=== PATIENT | male | born 1960 | race Hispanic/Latino ===

== ENCOUNTER 2018-04-28 09:53 | Emergency (ER) | payer BC ==
[~2018-04-28] VITALS: Ht 167.6 cm; Wt 108.9 kg
[2018-04-28 12:30] LABS: BASOPHILS % 0.2 % (0.0-1.0); EOSINOPHILS # (AUTO) 0.1 (0.0-0.4); EOSINOPHILS % 1.4 % (0.0-6.0); HEMATOCRIT 48.1 % (38.2-49.6); HEMOGLOBIN 16.9 g/dL (14.0-18.0); LYMPHOCYTES # (AUTO) 1.2 (1.0-3.2); LYMPHOCYTES % 14.5 % (18.0-39.1); MEAN CORPUSCULAR HEMOGLOBIN 33.1 pg (28-32); MEAN CORPUSCULAR HGB CONC 35.1 g/dL (31-35); MEAN CORPUSCULAR VOLUME 94.1 fL (81-99); MONOCYTES # (AUTO) 0.6 (0.2-0.8); MONOCYTES % 7.6 % (4.4-11.3); NEUTROPHILS # (AUTO) 6.1 (2.1-6.9); NEUTROPHILS % 75.9 % (38.7-80.0); PLATELET COUNT 298 x10e3/uL (140-360); RED BLOOD COUNT 5.11 x10e6/uL (4.3-5.7); RED CELL DISTRIBUTION WIDTH 12.7 % (11.7-14.4)
[2018-04-28 12:38] LABS: INR 1.17
[2018-04-28 12:39] LABS: PARTIAL THROMBOPLASTIN TIME 29.8 seconds (23.8-35.5)
[2018-04-28 12:50] LABS: ALBUMIN 3.8 g/dL (3.5-5.0); ALBUMIN/GLOBULIN RATIO 0.8 (0.8-2.0); ANION GAP 18.3 mmol/L (8-16); CALCIUM 10.1 mg/dL (8.4-10.2); CREATININE, SERUM 1.52 mg/dL (0.72-1.25); POTASSIUM 4.3 mmol/L (3.5-5.1)
[2018-04-28] MEDS ORDERED: PIPER-TAZ 3.375 GM 50 ML IV SCH (14:00)
[2018-04-28] MEDS ORDERED: VANCOMYCIN 1GM/NS 250 ML 250 ML IV SCH (14:00)
== END 2018-04-28 17:19 | disposition home or self-care (01) ==
LOC: ER 09:53
DX: M79.622 Pain in left upper arm (principal); L03.114 Cellulitis of left upper limb
CPT/HCPCS: 36415; 80053; 83605; 85025; 85610; 85730; 87040; 93971; 99284; J2543; J3370

== ENCOUNTER 2018-05-08 08:28 | Emergency (ER) | payer BC ==
[~2018-05-08] VITALS: Ht 167.6 cm; Wt 108.9 kg
[2018-05-08] MEDS ORDERED: HYDROMORPHONE 1MG/1ML INJ IV STA (10:11)
[2018-05-08] MEDS ORDERED: ONDANSETRON HCL INJ 2 MG/ML VIAL IV STA (10:11)
[2018-05-08 10:20] LABS: BASOPHILS # (AUTO) 0.1 (0.0-0.1); BASOPHILS % 1.1 % (0.0-1.0); EOSINOPHILS # (AUTO) 0.3 (0.0-0.4); EOSINOPHILS % 4.2 % (0.0-6.0); HEMATOCRIT 42.3 % (38.2-49.6); HEMOGLOBIN 14.5 g/dL (14.0-18.0); LYMPHOCYTES # (AUTO) 1.4 (1.0-3.2); LYMPHOCYTES % 23.5 % (18.0-39.1); MEAN CORPUSCULAR HEMOGLOBIN 32.5 pg (28-32); MEAN CORPUSCULAR HGB CONC 34.3 g/dL (31-35); MEAN CORPUSCULAR VOLUME 94.8 fL (81-99); MONOCYTES # (AUTO) 0.5 (0.2-0.8); MONOCYTES % 8.3 % (4.4-11.3); NEUTROPHILS # (AUTO) 3.8 (2.1-6.9); NEUTROPHILS % 62.4 % (38.7-80.0); PLATELET COUNT 379 x10e3/uL (140-360); RED BLOOD COUNT 4.46 x10e6/uL (4.3-5.7); RED CELL DISTRIBUTION WIDTH 12.1 % (11.7-14.4)
== END 2018-05-08 15:24 | disposition home or self-care (01) ==
LOC: ER 08:28
DX: M79.622 Pain in left upper arm (principal); L03.114 Cellulitis of left upper limb; M10.032 Idiopathic gout, left wrist
CPT/HCPCS: 36415; 84550; 85025; 99282

== ENCOUNTER 2018-05-25 07:07 | Emergency (ER) | payer BC ==
[~2018-05-25] VITALS: Ht 167.6 cm; Wt 108.9 kg
[2018-05-25] MEDS ORDERED: COLCHICINE 0.6 MG TAB PO SCH (07:30)
[2018-05-25] MEDS ORDERED: PREDNISONE 20 MG TAB PO ONE (07:30)
[2018-05-25] MEDS ORDERED: PREDNISONE10 M1 PO (07:56)
[2018-05-25] MEDS ORDERED: PREDNISONE20 MG PO (07:56)
[2018-05-25] MEDS ORDERED: PREDNISONE10 MG PO (07:56)
[2018-05-25] MEDS ORDERED: COLCRYS0.6 MG PO (07:57)
[2018-05-25 08:32] VITALS: BP 107/72
--- NOTE | 2018-05-25 11:23 | Diagnostic Imaging Report ---
PROCEDURE:X-RAY RIGHT KNEE, THREE OR MORE VIEWS COMPARISON:None. INDICATIONS:RIGHT LEG PAIN/SWELLING FINDINGS: The bones are well-mineralized. No evidence of fracture or malalignment. There are moderate tricompartmental, medial compartment predominant degenerative changes with joint space narrowing and bony osteophyte formation. There is a trace suprapatellar joint effusion. There is quadriceps enthesopathy. CONCLUSION: No evidence of fracture or malalignment. Trace suprapatellar joint effusion. 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 Dictated by: SHANNAN WEATHERS M.D. on 05/25/2018 at 8:28 Electronically approved by: SHANNAN WEATHERS M.D. on 05/25/2018 at 8:28
--- NOTE | 2018-05-25 11:23 | Diagnostic Imaging Report ---
PROCEDURE:X-RAY RIGHT ANKLE, COMPLETE INDICATION:Right leg pain/swelling COMPARISON:None. FINDINGS: No evidence of fracture or malalignment. The ankle mortise is preserved. Mild degenerative changes are present at the tibiotalar and intertarsal joints. Mild soft tissue swelling surrounding the ankle. Achilles enthesopathy is present. CONCLUSION: No acute osseous abnormality. Soft tissue swelling surrounding the ankle. Mild osteoarthritis of the tibiotalar and intertarsal joints. Dictated by: SHANNAN WEATHERS M.D. on 05/25/2018 at 8:30 Electronically approved by: SHANNAN WEATHERS M.D. on 05/25/2018 at 8:30
== END 2018-05-25 09:10 | disposition home or self-care (01) ==
LOC: ER 07:07
DX: M25.522 Pain in left elbow (principal); M25.561 Pain in right knee; M25.571 Pain in right ankle and joints of right foot; M1A.09X0 Idiopathic chronic gout, multiple sites, without tophus (tophi)
CPT/HCPCS: 99283

== ENCOUNTER 2021-11-24 17:42 | Inpatient (IN) | payer BC ==
[~2021-11-24] VITALS: Ht 167.6 cm; Wt 106.6 kg
[~2021-11-24 17:42] MED LIST: COLCRYS0.6 MG PO; PREDNISONE10 M1 PO; PREDNISONE10 MG PO; PREDNISONE20 MG PO
[2021-11-24] MEDS ORDERED: SODIUM CHLORIDE 0.9% 1000ML 1,000 ML IV ONE (18:00)
[2021-11-24 18:12] LABS: BASOPHILS % 0.3 % (0.0-1.0); HEMATOCRIT 49.8 % (38.2-49.6); HEMOGLOBIN 16.5 g/dL (14.0-18.0); LYMPHOCYTES # (AUTO) 1.6 (1.0-3.2); LYMPHOCYTES % 15.4 % (18.0-39.1); MEAN CORPUSCULAR HGB CONC 33.1 g/dL (31-35); MEAN CORPUSCULAR VOLUME 93.4 fL (81-99); MONOCYTES # (AUTO) 0.8 (0.2-0.8); MONOCYTES % 7.8 % (4.4-11.3); NEUTROPHILS # (AUTO) 8.1 (2.1-6.9); NEUTROPHILS % 75.9 % (38.7-80.0); PLATELET COUNT 292 x10e3/uL (140-360); RED BLOOD COUNT 5.33 x10e6/uL (4.3-5.7); RED CELL DISTRIBUTION WIDTH 13.2 % (11.7-14.4)
[2021-11-24 18:17] LABS: CLARITY,URINE CLEAR (CLEAR); COLOR,URINE STRAW (YELLOW); KETONES,URINE TRACE (NEGATIVE); LEUKOCYTE ESTERASE ,URINE NEGATIVE (NEGATIVE); NITRITE,URINE NEGATIVE (NEGATIVE); PROTEIN,URINE DIPSTICK TRACE (NEGATIVE); URINE UROBILINOGEN 1 mg/dL (0.2 - 1)
[2021-11-24] MEDS ORDERED: KETOROLAC TROMETHAMINE 30 MG/ML VIAL IV ONE (18:21)
[2021-11-24 18:29] LABS: ALBUMIN 3.6 g/dL (3.5-5.0); ALBUMIN/GLOBULIN RATIO 0.7 (0.8-2.0); ANION GAP 20.1 mmol/L (8-16); CALCIUM 9.7 mg/dL (8.4-10.2); CREATININE, SERUM 1.47 mg/dL (0.72-1.25); POTASSIUM 4.1 mmol/L (3.5-5.1)
[2021-11-24] MEDS ORDERED: ACETAMINOPHEN 325 MG TAB PO ONE (18:30)
[2021-11-24 18:34] LABS: BACTERIA,URINE MODERATE /HPF; HYALINE CASTS 0-1 (0-1); MUCUS,URINE FEW (RARE)
[2021-11-24] MEDS ORDERED: LACTATED RINGER'S 1,000 ML INJ ONE ×2 (19:15→20:45)
[2021-11-24] MEDS ORDERED: CEFTRIAXONE 1 GM VIAL IV ONE (19:15)
[2021-11-24] MEDS ORDERED: SODIUM CHLORIDE 0.9% 1000ML 1,000 ML ONE (19:22)
[2021-11-24] MEDS ORDERED: CEFTRIAXONE 1 GM in SODIUM CHLORIDE 0.9% 50ML 50 ML IV ONE (19:30)
[2021-11-24] MEDS ORDERED: ONDANSETRON HCL INJ 2MG/ML 2ML 2 MG/ML VIAL IV PRN (20:30)
[2021-11-24] MEDS ORDERED: LACTATED RINGER'S 1,000 ML ONE (20:41)
[2021-11-24] MEDS: SODIUM CHLORIDE 0.9% 1000ML 1,000 ML IV SCH (21:20)
[2021-11-24] MEDS ORDERED: ACETAMINOPHEN 325 MG TAB PO PRN (21:30)
[2021-11-24 23:45] VITALS: BP 129/72
[2021-11-25] VITALS (9 sets, daily range): BP systolic 107–156; BP diastolic 72–88
[2021-11-25] MEDS: Morphine 4mg Syringe 4 MG/ML INJ IV PRN ×2 (03:59→20:50)
[2021-11-25 05:04] LABS: BASOPHILS % 0.3 % (0.0-1.0); EOSINOPHILS % 0.6 % (0.0-6.0); HEMATOCRIT 37.6 % (38.2-49.6); LYMPHOCYTES # (AUTO) 1.5 (1.0-3.2); LYMPHOCYTES % 23.4 % (18.0-39.1); MEAN CORPUSCULAR HGB CONC 32.2 g/dL (31-35); MEAN CORPUSCULAR VOLUME 96.4 fL (81-99); MONOCYTES # (AUTO) 0.7 (0.2-0.8); MONOCYTES % 11.2 % (4.4-11.3); NEUTROPHILS # (AUTO) 4.1 (2.1-6.9); RED CELL DISTRIBUTION WIDTH 13.5 % (11.7-14.4)
[2021-11-25] MEDS: SODIUM CHLORIDE 0.9% 1000ML 1,000 ML IV SCH ×3 (05:10→20:27)
[2021-11-25 05:27] LABS: CALCIUM 8.1 mg/dL (8.4-10.2); CREATININE, SERUM 1.05 mg/dL (0.72-1.25)
[2021-11-25 05:47] LABS: HEMOGLOBIN 12.1 g/dL (14.0-18.0); PLATELET COUNT 164 x10e3/uL (140-360)
[2021-11-25] MEDS ORDERED: ONDANSETRON HCL 4 MG ORAL DISINTEGRATING TAB PO PRN (10:45)
[2021-11-25] MEDS: CEFTRIAXONE 1 GM in SODIUM CHLORIDE 0.9% 50ML 50 ML IV SCH (12:05)
[2021-11-25] MEDS: ENOXAPARIN SOD INJ 40 MG/0.4 ML SYR SC SCH (18:02)
[2021-11-25] MEDS: TAMSULOSIN HCL 0.4 MG CAP PO SCH (18:02)
[2021-11-26] VITALS (9 sets, daily range): BP systolic 95–137; BP diastolic 48–96
[2021-11-26] MEDS: SODIUM CHLORIDE 0.9% 1000ML 1,000 ML IV SCH ×2 (04:06→10:45)
[2021-11-26 06:08] LABS: BASOPHILS % 0.3 % (0.0-1.0); EOSINOPHILS # (AUTO) 0.1 (0.0-0.4); EOSINOPHILS % 1.4 % (0.0-6.0); HEMOGLOBIN 11.6 g/dL (14.0-18.0); LYMPHOCYTES # (AUTO) 1.4 (1.0-3.2); LYMPHOCYTES % 24.8 % (18.0-39.1); MEAN CORPUSCULAR HEMOGLOBIN 30.8 pg (28-32); MEAN CORPUSCULAR HGB CONC 32.2 g/dL (31-35); MEAN CORPUSCULAR VOLUME 95.5 fL (81-99); MONOCYTES # (AUTO) 0.6 (0.2-0.8); MONOCYTES % 9.8 % (4.4-11.3); NEUTROPHILS # (AUTO) 3.6 (2.1-6.9); NEUTROPHILS % 63.4 % (38.7-80.0); PLATELET COUNT 173 x10e3/uL (140-360); RED BLOOD COUNT 3.77 x10e6/uL (4.3-5.7); RED CELL DISTRIBUTION WIDTH 13.2 % (11.7-14.4)
[2021-11-26 06:26] LABS: ANION GAP 13.5 mmol/L (8-16); CALCIUM 8.1 mg/dL (8.4-10.2); CREATININE, SERUM 0.9 mg/dL (0.72-1.25); POTASSIUM 3.5 mmol/L (3.5-5.1)
[2021-11-26] MEDS: CEFTRIAXONE 1 GM in SODIUM CHLORIDE 0.9% 50ML 50 ML IV SCH (09:38)
[2021-11-26] MEDS: Morphine 4mg Syringe 4 MG/ML INJ IV PRN (09:45)
[2021-11-26] MEDS: TAMSULOSIN HCL 0.4 MG CAP PO SCH (16:37)
[2021-11-26] MEDS: ENOXAPARIN SOD INJ 40 MG/0.4 ML SYR SC SCH (16:37)
[2021-11-26] MEDS ORDERED: SODIUM CHLORIDE 0.9% 50ML 50 ML ONE (17:53)
[2021-11-26] MEDS ORDERED: IOPAMIDOL 370 MG/ML 200 ML INFUS..BTL INJ ONE (17:53)
[2021-11-26] MEDS: ACETAMINOPHEN 325 MG TAB PO PRN (20:48)
[2021-11-27] VITALS (8 sets, daily range): BP systolic 107–136; BP diastolic 72–88
[2021-11-27] MEDS: CEFTRIAXONE 1 GM in SODIUM CHLORIDE 0.9% 50ML 50 ML IV SCH (09:00)
[2021-11-27] MEDS: ALLOPURINOL 100 MG TAB PO SCH (09:00)
[2021-11-27] MEDS: TAMSULOSIN HCL 0.4 MG CAP PO SCH (16:33)
[2021-11-27] MEDS: ENOXAPARIN SOD INJ 40 MG/0.4 ML SYR SC SCH (16:33)
[2021-11-28] VITALS (8 sets, daily range): BP systolic 119–144; BP diastolic 74–105
[2021-11-28] MEDS: ACETAMINOPHEN 325 MG TAB PO PRN (02:51)
[2021-11-28 05:51] LABS: BASOPHILS % 0.3 % (0.0-1.0); EOSINOPHILS # (AUTO) 0.4 (0.0-0.4); EOSINOPHILS % 6.5 % (0.0-6.0); HEMATOCRIT 36.4 % (38.2-49.6); HEMOGLOBIN 12.1 g/dL (14.0-18.0); LYMPHOCYTES # (AUTO) 1.2 (1.0-3.2); LYMPHOCYTES % 20.6 % (18.0-39.1); MEAN CORPUSCULAR HEMOGLOBIN 30.3 pg (28-32); MEAN CORPUSCULAR HGB CONC 33.2 g/dL (31-35); MEAN CORPUSCULAR VOLUME 91.2 fL (81-99); MONOCYTES # (AUTO) 0.4 (0.2-0.8); MONOCYTES % 7.4 % (4.4-11.3); NEUTROPHILS # (AUTO) 3.8 (2.1-6.9); NEUTROPHILS % 64.9 % (38.7-80.0); PLATELET COUNT 221 x10e3/uL (140-360); RED BLOOD COUNT 3.99 x10e6/uL (4.3-5.7); RED CELL DISTRIBUTION WIDTH 12.8 % (11.7-14.4)
[2021-11-28 06:20] LABS: ANION GAP 14.7 mmol/L (8-16); CALCIUM 8.3 mg/dL (8.4-10.2); CREATININE, SERUM 0.85 mg/dL (0.72-1.25); POTASSIUM 3.7 mmol/L (3.5-5.1)
[2021-11-28] MEDS: CEFTRIAXONE 1 GM in SODIUM CHLORIDE 0.9% 50ML 50 ML IV SCH (07:55)
[2021-11-28] MEDS: ALLOPURINOL 100 MG TAB PO SCH (07:55)
[2021-11-28] MEDS: TRAMADOL HCL 50 MG TAB PO PRN ×2 (08:11→16:58)
[2021-11-28] MEDS ORDERED: Vancomycin IV 1 GM in SODIUM CHLORIDE 0.9% 250ML 250 ML IV SCH (10:30)
[2021-11-28] MEDS ORDERED: LIDOCAINE HCL 1% LOCAL INJ 20 ML VIAL ONE (14:13)
[2021-11-28 14:56] LABS: INR 1.08; PROTHROMBIN TIME 14.8 seconds (11.9-14.5)
[2021-11-28] MEDS: ENOXAPARIN SOD INJ 40 MG/0.4 ML SYR SC SCH (16:57)
[2021-11-28] MEDS: TAMSULOSIN HCL 0.4 MG CAP PO SCH (16:57)
[2021-11-28] MEDS: METHYLPREDNISOLONE SOD SUCC 40 MG/ML VIAL 1ML IV SCH (16:57)
[2021-11-28 20:17] LABS: BODY FLUID APPEARANCE SL.CLOUDY; BODY FLUID COLOR YELLOW; BODY FLUID TYPE SYNOVIAL
[2021-11-28 20:18] LABS: RBC,BODY FLUID 1000 cells/uL; WBC,BODY FLUID 5441 cells/uL
[2021-11-28 20:25] LABS: BODY FLUID APPEARANCE SL.CLOUDY; BODY FLUID COLOR YELLOW; BODY FLUID TYPE SYNOVIAL; RBC,BODY FLUID 1000 cells/uL; WBC,BODY FLUID 1087 cells/uL
[2021-11-28 20:45] LABS: LYMPHOCYTES,BODY FLUID 10 %; NEUTROPHILS,BODY FLUID 81 %
[2021-11-28 20:46] LABS: LYMPHOCYTES,BODY FLUID 12 %; MONO/MACROPHG,BODY FLUID 5 %; MONO/MACROPHG,BODY FLUID 9 %; NEUTROPHILS,BODY FLUID 83 %
[2021-11-29] VITALS (8 sets, daily range): BP systolic 119–139; BP diastolic 73–89
[2021-11-29] MEDS: METHYLPREDNISOLONE SOD SUCC 40 MG/ML VIAL 1ML IV SCH ×2 (05:42→17:29)
[2021-11-29] MEDS: ALLOPURINOL 100 MG TAB PO SCH (08:20)
[2021-11-29] MEDS: CEFTRIAXONE 1 GM in SODIUM CHLORIDE 0.9% 50ML 50 ML IV SCH (08:20)
[2021-11-29] MEDS: ENOXAPARIN SOD INJ 40 MG/0.4 ML SYR SC SCH (16:20)
[2021-11-29] MEDS: TAMSULOSIN HCL 0.4 MG CAP PO SCH (16:20)
[2021-11-29] MEDS: ACETAMINOPHEN 325 MG TAB PO PRN (21:26)
[2021-11-30] VITALS (9 sets, daily range): BP systolic 111–131; BP diastolic 78–87
[2021-11-30] MEDS: METHYLPREDNISOLONE SOD SUCC 40 MG/ML VIAL 1ML IV SCH ×2 (05:55→17:23)
[2021-11-30] MEDS: ALLOPURINOL 100 MG TAB PO SCH (08:38)
[2021-11-30] MEDS: CEFTRIAXONE 1 GM in SODIUM CHLORIDE 0.9% 50ML 50 ML IV SCH (08:38)
[2021-11-30] MEDS: ENOXAPARIN SOD INJ 40 MG/0.4 ML SYR SC SCH (17:23)
[2021-11-30] MEDS: TAMSULOSIN HCL 0.4 MG CAP PO SCH (17:23)
[2021-11-30] MEDS: ACETAMINOPHEN 325 MG TAB PO PRN (21:36)
[2021-12-01] VITALS (8 sets, daily range): BP systolic 108–135; BP diastolic 82–99
[2021-12-01] MEDS: METHYLPREDNISOLONE SOD SUCC 40 MG/ML VIAL 1ML IV SCH ×2 (05:06→17:09)
[2021-12-01] MEDS: CEFTRIAXONE 1 GM in SODIUM CHLORIDE 0.9% 50ML 50 ML IV SCH (08:19)
[2021-12-01] MEDS: ALLOPURINOL 100 MG TAB PO SCH (08:19)
[2021-12-01 10:37] LABS: BASOPHILS % 0.2 % (0.0-1.0); EOSINOPHILS % 0.2 % (0.0-6.0); HEMATOCRIT 42.8 % (38.2-49.6); HEMOGLOBIN 13.7 g/dL (14.0-18.0); LYMPHOCYTES # (AUTO) 1.1 (1.0-3.2); LYMPHOCYTES % 19.5 % (18.0-39.1); MEAN CORPUSCULAR HEMOGLOBIN 30.4 pg (28-32); MEAN CORPUSCULAR VOLUME 94.9 fL (81-99); MONOCYTES # (AUTO) 0.3 (0.2-0.8); MONOCYTES % 4.5 % (4.4-11.3); NEUTROPHILS # (AUTO) 4.2 (2.1-6.9); NEUTROPHILS % 74.3 % (38.7-80.0); PLATELET COUNT 302 x10e3/uL (140-360); RED BLOOD COUNT 4.51 x10e6/uL (4.3-5.7)
[2021-12-01 10:55] LABS: ANION GAP 15.6 mmol/L (8-16); CALCIUM 9.1 mg/dL (8.4-10.2); CREATININE, SERUM 0.9 mg/dL (0.72-1.25); POTASSIUM 4.6 mmol/L (3.5-5.1)
[2021-12-01] MEDS: ENOXAPARIN SOD INJ 40 MG/0.4 ML SYR SC SCH (16:20)
[2021-12-01] MEDS: TAMSULOSIN HCL 0.4 MG CAP PO SCH (16:20)
[2021-12-01] MEDS: ACETAMINOPHEN 325 MG TAB PO PRN (21:02)
[2021-12-02 00:49] VITALS: BP 131/85
[2021-12-02] MEDS: METHYLPREDNISOLONE SOD SUCC 40 MG/ML VIAL 1ML IV SCH (05:07)
[2021-12-02 05:50] VITALS: BP 126/83
[2021-12-02 07:30] VITALS: BP 130/79
[2021-12-02 07:44] VITALS: BP 130/79
[2021-12-02] MEDS: CEFTRIAXONE 1 GM in SODIUM CHLORIDE 0.9% 50ML 50 ML IV SCH (08:11)
[2021-12-02] MEDS: ALLOPURINOL 100 MG TAB PO SCH (08:11)
[2021-12-02] MEDS ORDERED: CELEBREX100 MG PO (09:52)
[2021-12-02] MEDS ORDERED: FLOMAX0.4 MG PO (09:53)
[2021-12-02] MEDS ORDERED: ALLOPURINOL100 MG PO (09:53)
[2021-12-02 11:35] VITALS: BP 128/94
== END 2021-12-02 15:15 | disposition home or self-care (01) | DRG 872 ==
LOC: ER 17:50 → ERHOLD 20:29 → MED/SURG3 23:15
PROVIDERS: ADMIT Internal Medicine; ATTEND Internal Medicine
PROC: 0S9C3ZX Drainage of Right Knee Joint, Percutaneous Approach, Diagnostic (ICD-10-PCS; principal; 2021-11-28)
PROC: 0S9D3ZX Drainage of Left Knee Joint, Percutaneous Approach, Diagnostic (ICD-10-PCS; 2021-11-28)
DX: A41.9 Sepsis, unspecified organism (principal); L03.116 Cellulitis of left lower limb; L03.115 Cellulitis of right lower limb; N41.0 Acute prostatitis; N39.0 Urinary tract infection, site not specified; E66.9 Obesity, unspecified; Z68.37 Body mass index [BMI] 37.0-37.9, adult; M17.0 Bilateral primary osteoarthritis of knee; N47.1 Phimosis; E83.51 Hypocalcemia; D64.9 Anemia, unspecified; Z20.822 Contact with and (suspected) exposure to COVID-19; R33.9 Retention of urine, unspecified; M25.462 Effusion, left knee; M25.461 Effusion, right knee; R53.81 Other malaise; M10.062 Idiopathic gout, left knee; M10.061 Idiopathic gout, right knee; R65.20 Severe sepsis without septic shock; B96.89 Other specified bacterial agents as the cause of diseases classified elsewhere
CPT/HCPCS: 36415; 71045; 74178; 80048; 80053; 81001; 82945; 83605; 84443; 84550; 85025; 85610; 85651; 86141; 87040; 87070; 87086; 87186; 87205; 89051; 89060; 94799; 97139; 99251; 99284; J0696; J1650; J1885; J2001; J2270; J2920; J3370; J7030; J7050; J7121; Q0162; Q9967; U0002

== ENCOUNTER 2024-10-09 14:44 | Inpatient (IN) | payer BC ==
[~2024-10-09] VITALS: Ht 167.6 cm; Wt 106.6 kg
[~2024-10-09 14:44] MED LIST changes: +ALLOPURINOL100 MG PO; +CELEBREX100 MG PO; +FLOMAX0.4 MG PO
[2024-10-09 16:06] LABS: BASOPHILS % 0.9 % (0.0-1.0); EOSINOPHILS % 0.4 % (0.0-6.0); HEMATOCRIT 31.8 % (38.2-49.6); HEMOGLOBIN 9.6 g/dL (14.0-18.0); LYMPHOCYTES # (AUTO) 0.9 (1.0-3.2); LYMPHOCYTES % 20.5 % (18.0-39.1); MEAN CORPUSCULAR HEMOGLOBIN 30.5 pg (28-32); MEAN CORPUSCULAR HGB CONC 30.2 g/dL (31-35); MONOCYTES # (AUTO) 0.3 (0.2-0.8); MONOCYTES % 7.4 % (4.4-11.3); PLATELET COUNT 145 x10e3/uL (140-360); RED BLOOD COUNT 3.15 x10e6/uL (4.3-5.7); WHITE BLOOD COUNT 4.59 x10e3/uL (4.8-10.8)
[2024-10-09 16:15] LABS: INR 1.23; PROTHROMBIN TIME 16.2 seconds (11.9-14.5)
[2024-10-09 16:16] LABS: PARTIAL THROMBOPLASTIN TIME 45.1 seconds (23.8-35.5)
[2024-10-09 16:22] LABS: ALBUMIN/GLOBULIN RATIO 0.8 (0.8-2.0); ANION GAP 18.5 mmol/L (8-16); BILIRUBIN,TOTAL 0.6 mg/dL (0.2-1.2); CALCIUM 8.9 mg/dL (8.4-10.2); CREATININE, SERUM 1.94 mg/dL (0.72-1.25); POTASSIUM 3.5 mmol/L (3.5-5.1)
[2024-10-09 16:27] LABS: INFLUENZA A AG NEGATIVE (NEGATIVE)
[2024-10-09 16:28] LABS: CORONAVIRUS COVID-19 AG NEGATIVE (NEGATIVE); INFLUENZA B AG NEGATIVE (NEGATIVE)
[2024-10-09] MEDS: CEFTRIAXONE 2 GM in SODIUM CHLORIDE 0.9% 100 ML IV ONE (16:32)
[2024-10-09] MEDS: ACETAMINOPHEN 325 MG TAB PO ONE (16:33)
[2024-10-09] MEDS: SODIUM CHLORIDE 0.9% 1000ML 2,450 ML IV SCH (16:36)
[2024-10-09 17:07] LABS: BILIRUBIN,URINE SMALL (NEGATIVE); CLARITY,URINE SL CLOUDY (CLEAR); COLOR,URINE AMBER (YELLOW); GLUCOSE, URINE NEGATIVE (NEGATIVE); KETONES,URINE TRACE (NEGATIVE); LEUKOCYTE ESTERASE ,URINE NEGATIVE (NEGATIVE); NITRITE,URINE NEGATIVE (NEGATIVE); PH,URINE 5 (5 - 7); PROTEIN,URINE DIPSTICK 2+ (NEGATIVE); URINE UROBILINOGEN 1 mg/dL (0.2 - 1)
[2024-10-09 17:12] LABS: AMPHETAMINES SCREEN,URINE NEGATIVE (NEGATIVE); BENZODIAZEPINES SCREEN,URINE NEGATIVE (NEGATIVE); CANNABINOIDS SCREEN,URINE NEGATIVE (NEGATIVE); COCAINE SCREEN,URINE NEGATIVE (NEGATIVE); METHADONE SCREEN, URINE NEGATIVE (NEGATIVE); OPIATES SCREEN,URINE NEGATIVE (NEGATIVE); PHENCYCLIDINE SCREEN,URINE NEGATIVE (NEGATIVE)
[2024-10-09 17:18] LABS: AMORPHOUS SEDIMENT,URINE MODERATE (FEW); BACTERIA,URINE FEW /HPF; RBC,URINE 0-5 /HPF (0-5); WBC,URINE (MAN) 0-5 /HPF (0-5)
[2024-10-09] MEDS ORDERED: ONDANSETRON HCL INJ 2MG/ML 2ML 2 MG/ML VIAL IV PRN (17:45)
[2024-10-09] MEDS ORDERED: IBUPROFEN 600 MG TAB PO PRN (17:45)
[2024-10-09] MEDS: SODIUM CHLORIDE 0.9% 1000ML 1,000 ML IV SCH (19:19)
[2024-10-09 19:22] VITALS: PULSE 106; RESP 20
[2024-10-09 19:24] VITALS: TEMP 98.3
[2024-10-09 20:00] VITALS: BP 121/79; PULSE 101; RESP 18; TEMP 98.7; O2SAT 96
[2024-10-09 23:13] VITALS: BP 107/73; PULSE 104; RESP 18; TEMP 99.1; O2SAT 99
[2024-10-10] VITALS (7 sets, daily range): BP systolic 120–131; BP diastolic 65–84; PULSE 94–110; RESP 18–20; TEMP 97.3–99.6; O2SAT 96–100
[2024-10-10 07:03] LABS: ALBUMIN 2.3 g/dL (3.5-5.0); ALBUMIN/GLOBULIN RATIO 0.7 (0.8-2.0); ANION GAP 13.6 mmol/L (8-16); BILIRUBIN,TOTAL 0.4 mg/dL (0.2-1.2); CALCIUM 8.2 mg/dL (8.4-10.2); CREATININE, SERUM 0.9 mg/dL (0.72-1.25); POTASSIUM 3.6 mmol/L (3.5-5.1); TOTAL PROTEIN 5.5 g/dL (6.5-8.1)
[2024-10-10 08:46] LABS: BASOPHILS % 0.7 % (0.0-1.0); EOSINOPHILS % 0.4 % (0.0-6.0); HEMATOCRIT 25.1 % (38.2-49.6); LYMPHOCYTES # (AUTO) 0.6 (1.0-3.2); LYMPHOCYTES % 23.4 % (18.0-39.1); MEAN CORPUSCULAR HEMOGLOBIN 29.6 pg (28-32); MEAN CORPUSCULAR HGB CONC 29.1 g/dL (31-35); MEAN CORPUSCULAR VOLUME 101.6 fL (81-99); MONOCYTES # (AUTO) 0.3 (0.2-0.8); MONOCYTES % 9.7 % (4.4-11.3); NEUTROPHILS # (AUTO) 1.7 (2.1-6.9); NEUTROPHILS % 63.9 % (38.7-80.0); RED BLOOD COUNT 2.47 x10e6/uL (4.3-5.7); RED CELL DISTRIBUTION WIDTH 18.1 % (11.7-14.4); WHITE BLOOD COUNT 2.69 x10e3/uL (4.8-10.8)
[2024-10-10 08:49] LABS: HEMOGLOBIN 7.3 g/dL (14.0-18.0); PLATELET COUNT 118 x10e3/uL (140-360)
[2024-10-10] MEDS ORDERED: POLYETHYLENE GLYCOL 3350 17 GM PACK PO PRN (10:45)
[2024-10-10] MEDS ORDERED: BISACODYL 10 MG SUPP PR PRN (10:45)
[2024-10-10] MEDS ORDERED: Morphine 2mg Syringe 2 MG/ML SYR IV PRN (12:00)
[2024-10-10 12:14] LABS: FERRITIN 6923.81 ng/mL (21.81-274.66)
[2024-10-10 12:16] LABS: FOLATE 3.5 ng/mL (7.0-15.4)
[2024-10-10 13:10] LABS: BAND NEUTROPHILS % (MANUAL) 1 %; BASOPHILS % (MANUAL) 1 % (0-1.5); LYMPHOCYTES % (MANUAL) 23 % (19-48); METAMYELOCYTES % (MANUAL) 1 % (0-0); MONOCYTES % (MANUAL) 8 % (3.4-9.0); MYELOCYTES % (MANUAL) 1 % (0-0); NEUTROPHILS % (MANUAL) 64 % (40-74); NUCLEATED RED BLOOD CELLS 1; REACTIVE LYMPHOCYTES 1
[2024-10-10 13:11] LABS: PLATELET ESTIMATE SLIGHTLY DECREASED; PLATELET MORPHOLOGY COMMENT NORMAL; RBC MORPHOLOGY COMMENT NORMAL
[2024-10-10] MEDS ORDERED: SUMATRIPTAN SUCCINATE 25 MG TAB PO PRN (13:45)
[2024-10-10] MEDS ORDERED: GUAIFENESIN/DEXTROMETHORPHAN LIQD 5 ML UDC PO PRN (13:45)
[2024-10-10] MEDS: AZITHROMYCIN 250 MG TAB PO SCH (14:32)
[2024-10-10] MEDS: ACETAMINOPHEN 325 MG TAB PO PRN (23:43)
[2024-10-11] VITALS (10 sets, daily range): BP systolic 114–129; BP diastolic 65–82; PULSE 88–114; RESP 18–20; TEMP 97.9–99.5; O2SAT 95–100
[2024-10-11] MEDS: SENNOSIDES 8.6 MG TAB PO SCH (09:00)
[2024-10-11] MEDS: DOCUSATE SODIUM 100 MG CAP PO SCH (09:21)
[2024-10-11] MEDS: FOLIC ACID 1 MG TAB PO SCH (09:21)
[2024-10-11 13:08] LABS: BASOPHILS % 0.3 % (0.0-1.0); EOSINOPHILS % 0.3 % (0.0-6.0); HEMATOCRIT 26.3 % (38.2-49.6); HEMOGLOBIN 7.4 g/dL (14.0-18.0); LYMPHOCYTES # (AUTO) 0.9 (1.0-3.2); LYMPHOCYTES % 29.4 % (18.0-39.1); MEAN CORPUSCULAR HEMOGLOBIN 29.4 pg (28-32); MEAN CORPUSCULAR HGB CONC 28.1 g/dL (31-35); MEAN CORPUSCULAR VOLUME 104.4 fL (81-99); MONOCYTES # (AUTO) 0.3 (0.2-0.8); MONOCYTES % 8.5 % (4.4-11.3); NEUTROPHILS # (AUTO) 1.7 (2.1-6.9); NEUTROPHILS % 58.4 % (38.7-80.0); PLATELET COUNT 108 x10e3/uL (140-360); RED BLOOD COUNT 2.52 x10e6/uL (4.3-5.7); RED CELL DISTRIBUTION WIDTH 18.6 % (11.7-14.4); WHITE BLOOD COUNT 2.93 x10e3/uL (4.8-10.8)
[2024-10-11 13:23] LABS: ALBUMIN 2.2 g/dL (3.5-5.0); ALBUMIN/GLOBULIN RATIO 0.7 (0.8-2.0); ANION GAP 12.9 mmol/L (8-16); BILIRUBIN,TOTAL 0.3 mg/dL (0.2-1.2); CREATININE, SERUM 0.81 mg/dL (0.72-1.25); POTASSIUM 3.9 mmol/L (3.5-5.1); TOTAL PROTEIN 5.5 g/dL (6.5-8.1)
[2024-10-12] VITALS (8 sets, daily range): BP systolic 118–124; BP diastolic 74–80; PULSE 93–106; RESP 16–18; TEMP 98–99.3; O2SAT 95–100
[2024-10-12 05:52] LABS: BASOPHILS % 0.7 % (0.0-1.0); EOSINOPHILS % 1.4 % (0.0-6.0); HEMATOCRIT 24.5 % (38.2-49.6); HEMOGLOBIN 7.2 g/dL (14.0-18.0); LYMPHOCYTES # (AUTO) 0.9 (1.0-3.2); LYMPHOCYTES % 29.9 % (18.0-39.1); MEAN CORPUSCULAR HEMOGLOBIN 29.9 pg (28-32); MEAN CORPUSCULAR HGB CONC 29.4 g/dL (31-35); MEAN CORPUSCULAR VOLUME 101.7 fL (81-99); MONOCYTES # (AUTO) 0.3 (0.2-0.8); MONOCYTES % 9.4 % (4.4-11.3); NEUTROPHILS # (AUTO) 1.5 (2.1-6.9); PLATELET COUNT 117 x10e3/uL (140-360); RED BLOOD COUNT 2.41 x10e6/uL (4.3-5.7); RED CELL DISTRIBUTION WIDTH 17.8 % (11.7-14.4); WHITE BLOOD COUNT 2.88 x10e3/uL (4.8-10.8)
[2024-10-12 06:08] LABS: IMMUNOGLOBULIN A 128 mg/dL (61-437); IMMUNOGLOBULIN G 752 mg/dL (603-1613)
[2024-10-12 06:13] LABS: ALBUMIN 2.1 g/dL (3.5-5.0); ALBUMIN/GLOBULIN RATIO 0.6 (0.8-2.0); ANION GAP 12.5 mmol/L (8-16); BILIRUBIN,TOTAL 0.4 mg/dL (0.2-1.2); CALCIUM 8.1 mg/dL (8.4-10.2); CREATININE, SERUM 0.72 mg/dL (0.72-1.25); POTASSIUM 3.5 mmol/L (3.5-5.1); TOTAL PROTEIN 5.4 g/dL (6.5-8.1)
[2024-10-12 08:30] LABS: EOSINOPHILS % (MANUAL) 1 % (0-7); LYMPHOCYTES % (MANUAL) 33 % (19-48); MONOCYTES % (MANUAL) 9 % (3.4-9.0); MYELOCYTES % (MANUAL) 3 % (0-0); NEUTROPHILS % (MANUAL) 54 % (40-74); NUCLEATED RED BLOOD CELLS 2; PLATELET ESTIMATE SLIGHTLY DECREASED; PLATELET MORPHOLOGY COMMENT NORMAL; RBC MORPHOLOGY COMMENT NORMAL
[2024-10-12] MEDS ORDERED: FOLIC ACID 1 MG TAB PO SCH (09:00)
[2024-10-12 10:16] LABS: IMMUNOGLOBULIN M 24 mg/dL (20-172)
[2024-10-12] MEDS: POTASSIUM CHLORIDE 10MEQ EA PO ONE (10:20)
[2024-10-12] MEDS ORDERED: IOPAMIDOL 370 MG/ML 100 ML INFUS..BTL INJ ONE (18:39)
[2024-10-13 03:18] VITALS: BP 121/74; PULSE 97; RESP 18; TEMP 98.2; O2SAT 99
[2024-10-13 05:30] LABS: ALBUMIN/GLOBULIN RATIO 0.6 (0.8-2.0); ANION GAP 12.5 mmol/L (8-16); BILIRUBIN,TOTAL 0.3 mg/dL (0.2-1.2); CALCIUM 8.1 mg/dL (8.4-10.2); CREATININE, SERUM 0.72 mg/dL (0.72-1.25); MAGNESIUM 1.9 MG/DL (1.3-2.1); POTASSIUM 3.5 mmol/L (3.5-5.1); TOTAL PROTEIN 5.2 g/dL (6.5-8.1)
[2024-10-13 06:08] LABS: BASOPHILS % 0.8 % (0.0-1.0); EOSINOPHILS # (AUTO) 0.1 (0.0-0.4); EOSINOPHILS % 1.9 % (0.0-6.0); HEMATOCRIT 23.6 % (38.2-49.6); LYMPHOCYTES # (AUTO) 0.8 (1.0-3.2); LYMPHOCYTES % 31.8 % (18.0-39.1); MEAN CORPUSCULAR HEMOGLOBIN 29.3 pg (28-32); MEAN CORPUSCULAR HGB CONC 28.8 g/dL (31-35); MEAN CORPUSCULAR VOLUME 101.7 fL (81-99); MONOCYTES # (AUTO) 0.2 (0.2-0.8); MONOCYTES % 8.7 % (4.4-11.3); NEUTROPHILS # (AUTO) 1.4 (2.1-6.9); NEUTROPHILS % 51.9 % (38.7-80.0); PLATELET COUNT 127 x10e3/uL (140-360); RED BLOOD COUNT 2.32 x10e6/uL (4.3-5.7); RED CELL DISTRIBUTION WIDTH 17.8 % (11.7-14.4); WHITE BLOOD COUNT 2.64 x10e3/uL (4.8-10.8)
[2024-10-13 06:11] LABS: HEMOGLOBIN 6.8 g/dL (14.0-18.0)
[2024-10-13 08:19] VITALS: BP 125/73; PULSE 97; RESP 19; TEMP 97.5; O2SAT 100
[2024-10-13 08:22] VITALS: BP 127/73; PULSE 97; RESP 19; TEMP 97.5; O2SAT 100
[2024-10-13] MEDS: SODIUM CHLORIDE 0.9% 250ML 250 ML IV ONE (10:34)
[2024-10-13] MEDS ORDERED: LIDOCAINE HCL 1% 30ML-PF VIAL ONE (12:40)
[2024-10-13] MEDS ORDERED: MIDAZOLAM HCL 2 MG/2 ML VIAL ONE (12:54)
[2024-10-13] MEDS ORDERED: SODIUM CHLORIDE 0.9% 250ML 250 ML ONE (12:54)
[2024-10-13] MEDS ORDERED: FENTANYL CITRATE/PF 100MCG/2 ML INJ ONE (12:55)
[2024-10-13 14:00] VITALS: BP 113/74; PULSE 97; RESP 18; TEMP 98.1; O2SAT 99
[2024-10-13] MEDS: SODIUM CHLORIDE 0.9% 250ML 250 ML ONE (15:52)
[2024-10-13 15:53] VITALS: BP 127/68; PULSE 92; RESP 16; TEMP 98.2; O2SAT 100
[2024-10-13 16:13] LABS: GLOBULIN TOTAL 2.7; KAPPA LIGHT CHAINS 22.9; SPE ALPHA 1 GLOBULIN 0.4; SPE ALPHA 2 GLOBULIN 0.9; SPE GAMMA GLOBULIN 0.6; SPE TOTAL PROTEIN 4.8
[2024-10-13 16:14] LABS: A/G RATIO 0.8; KAPPA/LAMBDA RATIO 1.15
[2024-10-13 20:00] VITALS: BP 133/77; PULSE 97; RESP 18; TEMP 97.9; O2SAT 100
[2024-10-14] VITALS: BP_SYST 123; BP_SYST 166; BP_DIAS 73; BP_DIAS 76; PULSE 80; PULSE 92; RESP 18; TEMP 98; TEMP 98.6; O2SAT 100; O2SAT 98
[2024-10-14 04:00] VITALS: BP 128/73; PULSE 93; RESP 18; TEMP 97.6; O2SAT 100
[2024-10-14 06:46] LABS: BASOPHILS % 0.7 % (0.0-1.0); EOSINOPHILS # (AUTO) 0.1 (0.0-0.4); EOSINOPHILS % 2.2 % (0.0-6.0); HEMATOCRIT 28.2 % (38.2-49.6); LYMPHOCYTES # (AUTO) 0.8 (1.0-3.2); LYMPHOCYTES % 28.7 % (18.0-39.1); MEAN CORPUSCULAR HEMOGLOBIN 29.5 pg (28-32); MEAN CORPUSCULAR HGB CONC 31.9 g/dL (31-35); MEAN CORPUSCULAR VOLUME 92.5 fL (81-99); MONOCYTES # (AUTO) 0.2 (0.2-0.8); MONOCYTES % 7.8 % (4.4-11.3); NEUTROPHILS # (AUTO) 1.5 (2.1-6.9); NEUTROPHILS % 54.6 % (38.7-80.0); PLATELET COUNT 106 x10e3/uL (140-360); RED BLOOD COUNT 3.05 x10e6/uL (4.3-5.7); RED CELL DISTRIBUTION WIDTH 19.7 % (11.7-14.4); WHITE BLOOD COUNT 2.68 x10e3/uL (4.8-10.8)
[2024-10-14 07:14] LABS: ALBUMIN/GLOBULIN RATIO 0.7 (0.8-2.0); ANION GAP 12.6 mmol/L (8-16); BILIRUBIN,TOTAL 0.5 mg/dL (0.2-1.2); CALCIUM 7.9 mg/dL (8.4-10.2); CREATININE, SERUM 0.65 mg/dL (0.72-1.25); POTASSIUM 3.6 mmol/L (3.5-5.1)
[2024-10-14 08:15] VITALS: BP 127/71; PULSE 89; RESP 20; TEMP 97.7; O2SAT 100
[2024-10-14 11:04] LABS: BAND NEUTROPHILS % (MANUAL) 5 %; EOSINOPHILS % (MANUAL) 1 % (0-7); LYMPHOCYTES % (MANUAL) 35 % (19-48); MICROCYTOSIS SLIGHT; MONOCYTES % (MANUAL) 3 % (3.4-9.0); NEUTROPHILS % (MANUAL) 56 % (40-74); NUCLEATED RED BLOOD CELLS 4; PLATELET ESTIMATE SLIGHTLY DECREASED; PLATELET MORPHOLOGY COMMENT NORMAL
[2024-10-14 12:03] VITALS: BP 125/77; PULSE 95; RESP 20; TEMP 97.9; O2SAT 100
[2024-10-14 20:23] VITALS: BP 135/74; PULSE 98; RESP 20; TEMP 98.5; O2SAT 100
[2024-10-14 20:36] VITALS: BP 135/74; PULSE 98; RESP 20; TEMP 98.5; O2SAT 100
[2024-10-15] VITALS: BP 134/79; PULSE 91; RESP 18; TEMP 97.6; O2SAT 98
[2024-10-15 04:00] VITALS: BP 130/79; PULSE 86; RESP 17; TEMP 96.5; O2SAT 100
[2024-10-15 05:18] LABS: BASOPHILS % 1.4 % (0.0-1.0); EOSINOPHILS # (AUTO) 0.1 (0.0-0.4); EOSINOPHILS % 2.1 % (0.0-6.0); HEMATOCRIT 29.7 % (38.2-49.6); LYMPHOCYTES # (AUTO) 0.9 (1.0-3.2); LYMPHOCYTES % 32.2 % (18.0-39.1); MEAN CORPUSCULAR HEMOGLOBIN 29.5 pg (28-32); MEAN CORPUSCULAR HGB CONC 30.3 g/dL (31-35); MEAN CORPUSCULAR VOLUME 97.4 fL (81-99); MONOCYTES # (AUTO) 0.2 (0.2-0.8); MONOCYTES % 6.9 % (4.4-11.3); NEUTROPHILS # (AUTO) 1.5 (2.1-6.9); NEUTROPHILS % 51.5 % (38.7-80.0); PLATELET COUNT 111 x10e3/uL (140-360); RED BLOOD COUNT 3.05 x10e6/uL (4.3-5.7); RED CELL DISTRIBUTION WIDTH 19.1 % (11.7-14.4); WHITE BLOOD COUNT 2.89 x10e3/uL (4.8-10.8)
[2024-10-15 05:49] LABS: ALBUMIN 2.1 g/dL (3.5-5.0); ALBUMIN/GLOBULIN RATIO 0.7 (0.8-2.0); ANION GAP 13.3 mmol/L (8-16); BILIRUBIN,TOTAL 0.4 mg/dL (0.2-1.2); CALCIUM 8.1 mg/dL (8.4-10.2); CREATININE, SERUM 0.69 mg/dL (0.72-1.25); TOTAL PROTEIN 5.3 g/dL (6.5-8.1)
[2024-10-15 05:55] LABS: POTASSIUM 3.3 mmol/L (3.5-5.1)
[2024-10-15 08:00] VITALS: BP 129/75; PULSE 88; RESP 19; TEMP 98.1; O2SAT 99
[2024-10-15 11:00] VITALS: BP 131/73; PULSE 93; RESP 20; TEMP 97.9; O2SAT 100
[2024-10-15] MEDS ORDERED: Folic Acid PO (11:08)
[2024-10-15] MEDS ORDERED: FOLIC ACID-VIT1 EACH PO (11:09)
[2024-10-15] MEDS ORDERED: FLOMAX0.4 MG PO (11:12)
== END 2024-10-15 13:20 | disposition home or self-care (01) | DRG 824 ==
LOC: ER 15:53 → ERHOLD 17:44 → MED/SURG2 20:00 → OBSVTOIN 10-10 10:41
PROVIDERS: ADMIT Internal Medicine; ATTEND Internal Medicine
PROC: 07BC3ZX Excision of Pelvis Lymphatic, Percutaneous Approach, Diagnostic (ICD-10-PCS; principal; 2024-10-13)
PROC: 30233N1 Transfusion of Nonautologous Red Blood Cells into Peripheral Vein, Percutaneous Approach (ICD-10-PCS; 2024-10-13)
DX: C77.5 Secondary and unspecified malignant neoplasm of intrapelvic lymph nodes (principal); C79.51 Secondary malignant neoplasm of bone; E87.20 Acidosis, unspecified; D61.818 Other pancytopenia; H49.20 Sixth [abducent] nerve palsy, unspecified eye; C61 Malignant neoplasm of prostate; R50.81 Fever presenting with conditions classified elsewhere; R00.0 Tachycardia, unspecified; E53.8 Deficiency of other specified B group vitamins; R97.20 Elevated prostate specific antigen [PSA]; Z11.52 Encounter for screening for COVID-19; Z86.73 Personal history of transient ischemic attack (TIA), and cerebral infarction without residual deficits
CPT/HCPCS: 36415; 38505; 70450; 71045; 74177; 77012; 80053; 80307; 81001; 82105; 82378; 82607; 82728; 82746; 82784; 83540; 83605; 83735; 84152; 84165; 84466; 85025; 85045; 85610; 85730; 86301; 86850; 86900; 86920; 87040; 87086; 88304; 93005; 99152; 99153; 99284; G0378; J0696; J2003; J2250; J7030; J7050; P9016; Q9967

== ENCOUNTER 2024-10-23 13:31 | Emergency (ER) | payer BC ==
[~2024-10-23] VITALS: Ht 170.2 cm; Wt 88.5 kg
[~2024-10-23 13:31] MED LIST changes: +FOLIC ACID-VIT1 EACH PO; +Folic Acid PO
[2024-10-23 13:40] VITALS: TEMP 98.2
[2024-10-23] MEDS ORDERED: IOPAMIDOL 370 MG/ML 100 ML INFUS..BTL INJ ONE (13:58)
[2024-10-23 14:03] LABS: BASOPHILS % 0.7 % (0.0-1.0); EOSINOPHILS # (AUTO) 0.1 (0.0-0.4); EOSINOPHILS % 1.2 % (0.0-6.0); HEMOGLOBIN 11.3 g/dL (14.0-18.0); LYMPHOCYTES # (AUTO) 1.1 (1.0-3.2); MEAN CORPUSCULAR HEMOGLOBIN 29.4 pg (28-32); MEAN CORPUSCULAR HGB CONC 29.7 g/dL (31-35); MONOCYTES # (AUTO) 0.3 (0.2-0.8); MONOCYTES % 8.1 % (4.4-11.3); NEUTROPHILS # (AUTO) 2.4 (2.1-6.9); NEUTROPHILS % 59.3 % (38.7-80.0); PLATELET COUNT 131 x10e3/uL (140-360); RED BLOOD COUNT 3.84 x10e6/uL (4.3-5.7); RED CELL DISTRIBUTION WIDTH 18.4 % (11.7-14.4); WHITE BLOOD COUNT 4.07 x10e3/uL (4.8-10.8)
[2024-10-23] MEDS: LACTATED RINGER'S 1,000 ML INJ ONE ×2 (14:20→15:03)
[2024-10-23 14:32] LABS: ALBUMIN/GLOBULIN RATIO 0.8 (0.8-2.0); ANION GAP 17.9 mmol/L (8-16); BILIRUBIN,TOTAL 0.4 mg/dL (0.2-1.2); CALCIUM 8.9 mg/dL (8.4-10.2); CREATININE, SERUM 1.03 mg/dL (0.72-1.25); POTASSIUM 3.9 mmol/L (3.5-5.1); TOTAL PROTEIN 6.9 g/dL (6.5-8.1)
[2024-10-23 14:38] LABS: TROPONIN I 0.011 ng/mL (0-0.300)
[2024-10-23 15:03] LABS: BILIRUBIN,URINE NEGATIVE (NEGATIVE); CLARITY,URINE CLEAR (CLEAR); COLOR,URINE YELLOW (YELLOW); GLUCOSE, URINE NEGATIVE (NEGATIVE); KETONES,URINE NEGATIVE (NEGATIVE); LEUKOCYTE ESTERASE ,URINE NEGATIVE (NEGATIVE); NITRITE,URINE NEGATIVE (NEGATIVE); PH,URINE 6 (5 - 7); PROTEIN,URINE DIPSTICK TRACE (NEGATIVE); URINE UROBILINOGEN 0.2 mg/dL (0.2 - 1)
[2024-10-23 15:05] LABS: BACTERIA,URINE FEW /HPF; EPITHELIAL CELLS,URINE FEW /LPF; RBC,URINE 0-5 /HPF (0-5); WBC,URINE (MAN) 0-5 /HPF (0-5)
[2024-10-23 15:06] LABS: MUCUS,URINE MODERATE (RARE)
[2024-10-23] MEDS ORDERED: DOXYCYCLINE HY100 MG PO (15:41)
[2024-10-23 16:23] VITALS: PULSE 109; RESP 19; O2SAT 99
== END 2024-10-23 16:25 | disposition home or self-care (01) ==
LOC: ER 13:54
DX: E86.0 Dehydration (principal); R00.0 Tachycardia, unspecified; M10.9 Gout, unspecified; R94.31 Abnormal electrocardiogram [ECG] [EKG]; Z85.46 Personal history of malignant neoplasm of prostate
CPT/HCPCS: 36415; 71260; 80053; 81001; 83605; 84484; 85025; 93005; 99284; J7121; Q9967

== ENCOUNTER → 2024-10-25 | Outpatient (REF) | payer BC ==
[~2024-10-25] MED LIST changes: +DOXYCYCLINE HY100 MG PO
== END ==
LOC: RAD 13:48
PROVIDERS: ATTEND Internal Medicine
DX: M25.511 Pain in right shoulder (principal)

== ENCOUNTER → 2024-11-29 | Day surgery (SDC) | payer BC ==
[2024-11-28 14:53] LABS: BASOPHILS % 0.7 % (0.0-1.0); EOSINOPHILS # (AUTO) 0.1 (0.0-0.4); EOSINOPHILS % 2.4 % (0.0-6.0); HEMOGLOBIN 9.8 g/dL (14.0-18.0); LYMPHOCYTES # (AUTO) 1.5 (1.0-3.2); MEAN CORPUSCULAR HEMOGLOBIN 29.3 pg (28-32); MEAN CORPUSCULAR HGB CONC 30.6 g/dL (31-35); MEAN CORPUSCULAR VOLUME 95.5 fL (81-99); MONOCYTES # (AUTO) 0.3 (0.2-0.8); MONOCYTES % 7.5 % (4.4-11.3); NEUTROPHILS # (AUTO) 2.1 (2.1-6.9); NEUTROPHILS % 51.7 % (38.7-80.0); PLATELET COUNT 201 x10e3/uL (140-360); RED BLOOD COUNT 3.35 x10e6/uL (4.3-5.7); RED CELL DISTRIBUTION WIDTH 19.7 % (11.7-14.4); WHITE BLOOD COUNT 4.14 x10e3/uL (4.8-10.8)
[2024-11-28 15:32] LABS: CALCIUM 8.8 mg/dL (8.4-10.2); CREATININE, SERUM 0.86 mg/dL (0.72-1.25)
[~2024-11-29] MED LIST changes: +ACETAMINOPHEN 1000 MG/100 ML 100 ML IV ONE; +BICALUTAMIDE50 MG PO; +CALCIUM-MAGNES1 EA11 PO; +DEXAMETHASONE SOD PHOS INJ 4 MG/ML SDV ONE; +FENTANYL CITRATE/PF 100MCG/2 ML INJ ONE; +FOLIC ACID0.8 MG PO; +LIDOCAINE HCL 2% LOCAL INJ 5 ML SDV VIAL INJ ONE; +ONDANSETRON HCL INJ 2MG/ML 2ML 2 MG/ML VIAL ONE; +PHENYLEPHRINE HCL 1% 10 MG/ML VIAL ONE; +PROPOFOL IV EMULSION 10 MG/ML 20 ML VIAL ONE; +SEVOFLURANE INHAL SOLN 250 ML PEN BTL ONE; +SODIUM CHLORIDE 0.9% INJ 10 ML VIAL ONE
[2024-11-29] MEDS: LACTATED RINGER'S 1,000 ML ONE (06:01)
[2024-11-29] MEDS: CEFAZOLIN SODIUM 2 GM ONE (06:01)
[2024-11-29 09:05] VITALS: TEMP 97.1
[2024-11-29 09:55] VITALS: BP 124/72; PULSE 82; RESP 18; O2SAT 99
== END | disposition home or self-care (01) ==
LOC: OR 05:23
PROVIDERS: ATTEND Urology
DX: N47.1 Phimosis (principal); N35.819 Other urethral stricture, male, unspecified site; C61 Malignant neoplasm of prostate; N39.0 Urinary tract infection, site not specified; N40.1 Benign prostatic hyperplasia with lower urinary tract symptoms; N13.8 Other obstructive and reflux uropathy; R39.14 Feeling of incomplete bladder emptying; R35.1 Nocturia; C79.51 Secondary malignant neoplasm of bone; D64.9 Anemia, unspecified; I10 Essential (primary) hypertension; G89.29 Other chronic pain; M19.90 Unspecified osteoarthritis, unspecified site; Z01.810 Encounter for preprocedural cardiovascular examination; Z01.812 Encounter for preprocedural laboratory examination; Z79.899 Other long term (current) drug therapy; Z68.37 Body mass index [BMI] 37.0-37.9, adult; Z79.60 Long term (current) use of unspecified immunomodulators and immunosuppressants
CPT/HCPCS: 36415; 52281; 54161; 74420; 80048; 85025; 88304; 93005; J0131; J1100; J2003; J2371; J2405; J2704; J3010; J7121

== ENCOUNTER → 2024-12-13 | Outpatient (REF) | payer BC ==
[~2024-12-13] MED LIST changes: -ACETAMINOPHEN 1000 MG/100 ML 100 ML IV ONE; -DEXAMETHASONE SOD PHOS INJ 4 MG/ML SDV ONE; -FENTANYL CITRATE/PF 100MCG/2 ML INJ ONE; -LIDOCAINE HCL 2% LOCAL INJ 5 ML SDV VIAL INJ ONE; -ONDANSETRON HCL INJ 2MG/ML 2ML 2 MG/ML VIAL ONE; -PHENYLEPHRINE HCL 1% 10 MG/ML VIAL ONE; -PROPOFOL IV EMULSION 10 MG/ML 20 ML VIAL ONE; -SEVOFLURANE INHAL SOLN 250 ML PEN BTL ONE; -SODIUM CHLORIDE 0.9% INJ 10 ML VIAL ONE
== END ==
LOC: RAD 12:41
PROVIDERS: ATTEND Internal Medicine
DX: M25.571 Pain in right ankle and joints of right foot (principal)